=== PATIENT | female | born 1965 | race Caucasian/White ===

== ENCOUNTER 2017-06-28 03:51 | Emergency (ER) | payer BC ==
[~2017-06-28] VITALS: Ht 154.9 cm; Wt 105.8 kg
[2017-06-28 03:55] VITALS: TEMP 36.9; Ht 154.9 cm; Wt 105.8 kg
[2017-06-28 05:01] LABS: BASO % 0.8 %; BASO ABS # 0.06 K/uL (0-0.2); EOS % 2.6 %; HEMATOCRIT 24.3 % (37-47); IG% 0.9 %; LYMPH % 24.7 %; LYMPH ABS # 1.92 K/uL (1.2-3.4); MEAN CELL VOLUME 99.6 fL (80-100); MEAN CORPUSCULAR HEMOGLOBIN 31.6 pg (25-34); MEAN CORPUSCULAR HGB CONC 31.7 g/dl (32-36); MEAN PLATELET VOLUME 9.1 fL (7.4-10.4); MONO % 6.6 %; NEUT % 64.4 %; PLATELET COUNT 429 K/uL (130-400); RED BLOOD COUNT 2.44 M/uL (4.2-5.4); WHITE BLOOD COUNT 7.76 K/uL (4.8-10.8)
[2017-06-28 05:11] LABS: INR 1.1 (0.9-1.1); PARTIAL THROMBOPLASTIN RATIO 0.8; PROTHROMBIN TIME (PATIENT) 11.3 SECONDS (9.0-12.0)
[2017-06-28] MEDS ORDERED: LEVO100T7 PO (05:12)
[2017-06-28] MEDS ORDERED: FEXO1TAB49 PO (05:13)
[2017-06-28] MEDS ORDERED: ATEN-175 PO (05:14)
[2017-06-28] MEDS ORDERED: FOLI1TAB7 PO (05:14)
[2017-06-28 05:19] LABS: BUN/CREATININE RATIO 22.1 (10-20); CALCIUM 8.1 mg/dl (8.5-10.1); CREATININE 0.9 mg/dl (0.60-1.20); POTASSIUM 3.9 mmol/L (3.5-5.1)
[2017-06-28] MEDS ORDERED: FERR324T4 PO (05:23)
[2017-06-28] MEDS ORDERED: METH2.5T PO (05:25)
[2017-06-28 05:28] LABS: PREG INTERNAL NEGATIVE QC NEG CLEAR BACKGROUND; PREG INTERNAL POSITIVE QC POS CONTROL LINE
[2017-06-28 05:29] LABS: THYROID STIMULATING HORMONE 0.973 uIu/ml (0.300-4.500)
[2017-06-28 05:33] LABS: COMPLETE YES; HYPERSEGMENTED POLYS 1+; POLYCHROMASIA 1+
--- NOTE | 2017-06-28 07:20 | DIAGNOSTIC IMAGING REPORT ---
PELVIC COMPLETE NON OB, TRANSVAG-FEMALE PELVIS CLINICAL HISTORY: 51 years-old Female presenting with heavy bleeding for 3 weeks. TECHNIQUE: Real-time grayscale and color and spectral Doppler ultrasound imaging of the pelvis was performed first using a transabdominal probe and subsequently transvaginal for better characterization. COMPARISON: None. FINDINGS: Uterus: Mildly enlarged for age. Anteverted retroflexed. The uterus measures 13.0 x 7.4 x 9.4 cm. Endometrial stripe measures 19 mm in thickness. Endometrium heterogeneous in appearance. Cervix contains nabothian cysts. Right adnexa: Right ovary expanded by a septated cystic lesion with low level echoes and polypoid isoechoic peripheral nodularity. This lesion measures 2.3 x 3.1 x 5.0 cm. Right ovary overall measures 3.1 x 3.7 x 5.4 cm. Normal color Doppler flow and arterial and venous waveforms within the ovarian parenchyma. Left adnexa: Not visualized. Other: No free fluid. IMPRESSION: 1. Thickened and heterogeneous appearance of the endometrium. In a patient of this age, presumably perimenopausal or postmenopausal, this is primarily concerning for endometrial neoplasm although endometrial hyperplasia can also have this appearance. Gynecologic consultation for endometrial biopsy recommended. 2. Complex right ovarian lesion. A borderline lesion or malignancy cannot be excluded. Further evaluation with contrast-enhanced MR of the pelvis versus surgical consultation recommended. The report will be called/faxed according to standard departmental protocol. Electronically signed by: Jimmie Mcleod M.D. 06/28/2017 7:18 AM Dictated Date/Time: 06/28/2017 7:13 AM
--- NOTE | 2017-06-28 07:33 | EMERGENCY ROOM VISIT NOTE ---
History First contact with patient: 04:05 Chief Complaint: ED VAG BLEEDING Stated Complaint: PROLONGED AND HEAVY MENSTRAL CYCLE History of Present Illness The patient is a 51 year old female who presents to the Emergency Room with complaints of abnormal menstrual cycles the past year that have been 2-3 months apart and longer duration. Patient states she's been having her menstrual cycle for the past 3 weeks that is common go in severity bleeding. Last few days has been heavier. She saw urgent care and the family care doctor. She had a CBC that showed mild anemia. She's not seen a OB doctor. Patient states she feels fine now but did feel slightly fatigued earlier in the week. She has a history of anemia. Patient denies chest pain, dyspnea, abdominal pain, back pain, urinary symptoms, leg pain or swelling. No bleeding or bruising. No prior blood transfusions. Review of Systems See HPI for pertinent positives & negatives. A total of 10 systems reviewed and were otherwise negative. Past Medical/Surgical History Hypothyroidism, rheumatoid arthritis, hypertension Social History Smoking Status: Former Smoker Drug Use: none Marital Status: Housing Status: lives with family Occupation Status: employed Current/Historical Medications Scheduled Atenolol (Tenormin), 100 MG PO DAILY Ferrous Sulfate (Ferrous Sulfate), 324 MG PO DAILY Fexofenadine Hcl (Precious Allergy), 180 MG PO DAILY Folic Acid (Folvite), 1 MG PO DAILY Levothyroxine Sodium (Levothyroxine Sodium), 100 MCG PO DAILY Methotrexate (Methotrexate), 20 MG PO WK Physical Exam Vital Signs Date Time Temp Pulse Resp B/P (MAP) Pulse Ox O2 Delivery O2 Flow Rate FiO2 06/28/17 06:55 55 12 100 06/28/17 06:50 57 15 99 06/28/17 06:45 144/68 06/28/17 06:16 25 06/28/17 05:11 59 18 100 06/28/17 05:10 59 06/28/17 05:10 Room Air 06/28/17 05:06 58 22 99 Room Air 06/28/17 05:05 145/69 06/28/17 03:55 36.9 59 18 142/84 99 Room Air Physical Exam VITALS: Vitals are noted on the nurse's note and reviewed by myself. Vital signs stable. GENERAL: Pleasant female, in no acute distress, nondiaphoretic, well-developed well-nourished. SKIN: The skin was without rashes, erythema, edema, or bruising. There is no tenting of the skin. Capillary reflex less than 2 seconds. HEAD: Normocephalic atraumatic. EARS: External auditory canals clear, tympanic membranes pearly verde without erythema or effusion bilaterally. EYES: Pupils equal round and reactive to light and accommodation. Conjunctivae without injection, sclerae without icterus. Extraocular movements intact. NOSE: Patent, turbinates without inflammation or discharge. MOUTH: Mucous membranes moist. Pharynx without erythema or exudate. Uvula midline. Airway patent. Tongue does not deviate. NECK: Supple without nuchal rigidity. No lymphadenopathy. No thyromegaly. Cervical spine is nontender. No JVD. HEART: Regular rate and rhythm without murmurs gallops or rubs. LUNGS: Clear to auscultation bilaterally without wheezes, rales or rhonchi. No dullness to percussion. No retractions or accessory muscle use. ABDOMEN: Positive bowel sounds x 4. Normal tympanic percussion. Soft, nontender, without masses or organomegaly. Godfrey sign negative. No guarding or rebound tenderness. No CVA tenderness exam: Normal external female genitalia, minimal dark red blood in the os, no active bleeding from the os. Counter Installer present. MUSCULOSKELETAL: No muscle atrophy, erythema, or edema noted. NEURO: Patient was alert and oriented to person place and time. Normal sensation to light and sharp touch. No focal neurological deficits. Medical Decision & Procedures Laboratory Results 06/28/17 04:45 Red Blood Count 2.44, Mean Corpuscular Volume 99.6, Mean Corpuscular Hemoglobin 31.6, Mean Corpuscular Hemoglobin Concent 31.7, Mean Platelet Volume 9.1, Neutrophils (%) (Auto) 64.4, Lymphocytes (%) (Auto) 24.7, Monocytes (%) (Auto) 6.6, Eosinophils (%) (Auto) 2.6, Basophils (%) (Auto) 0.8, Neutrophils # (Auto) 5.00, Lymphocytes # (Auto) 1.92, Monocytes # (Auto) 0.51, Eosinophils # (Auto) 0.20, Basophils # (Auto) 0.06 06/28/17 04:45 Test 06/28/17 04:45 White Blood Count 7.76 K/uL (4.8-10.8) Red Blood Count 2.44 M/uL (4.2-5.4) Hemoglobin 7.7 g/dL (12.0-16.0) Hematocrit 24.3 % (37-47) Mean Corpuscular Volume 99.6 fL (80-100) Mean Corpuscular Hemoglobin 31.6 pg (25-34) Mean Corpuscular Hemoglobin Concent 31.7 g/dl (32-36) Platelet Count 429 K/uL (130-400) Mean Platelet Volume 9.1 fL (7.4-10.4) Neutrophils (%) (Auto) 64.4 % Lymphocytes (%) (Auto) 24.7 % Monocytes (%) (Auto) 6.6 % Eosinophils (%) (Auto) 2.6 % Basophils (%) (Auto) 0.8 % Neutrophils # (Auto) 5.00 K/uL (1.4-6.5) Lymphocytes # (Auto) 1.92 K/uL (1.2-3.4) Monocytes # (Auto) 0.51 K/uL (0.11-0.59) Eosinophils # (Auto) 0.20 K/uL (0-0.5) Basophils # (Auto) 0.06 K/uL (0-0.2) RDW Standard Deviation 50.9 fL (36.4-46.3) RDW Coefficient of Variation 15.6 % (11.5-14.5) Immature Granulocyte % (Auto) 0.9 % Immature Granulocyte # (Auto) 0.07 K/uL (0.00-0.02) Nucleated RBC Absolute Count (auto) 0.03 K/uL (0-0) Nucleated Red Blood Cells % 0.4 % Hypersegmented Polys 1+ Polychromasia 1+ Prothrombin Time 11.3 SECONDS (9.0-12.0) Prothromb Time International Ratio 1.1 (0.9-1.1) Activated Partial Thromboplast Time 21.6 SECONDS (21.0-31.0) Partial Thromboplastin Ratio 0.8 Anion Gap 8.0 mmol/L (3-11) Est Creatinine Clear Calc Drug Dose 81.0 ml/min Estimated GFR () 84.6 Estimated GFR (Non- 73.0 BUN/Creatinine Ratio 22.1 (10-20) Calcium Level 8.1 mg/dl (8.5-10.1) Total Bilirubin 0.2 mg/dl (0.2-1) Aspartate Amino Transf (AST/SGOT) 31 U/L (15-37) Alanine Aminotransferase (ALT/SGPT) 45 U/L (12-78) Alkaline Phosphatase 61 U/L (45-117) Total Protein 6.9 gm/dl (6.4-8.2) Albumin 3.5 gm/dl (3.4-5.0) Globulin 3.4 gm/dl (2.5-4.0) Albumin/Globulin Ratio 1.0 (0.9-2) Thyroid Stimulating Hormone (TSH) 0.973 uIu/ml (0.300-4.500) Human Chorionic Gonadotropin, Qual NEG (NEG) ED Course Prior records/ancillary studies reviewed. Triage Nursing notes reviewed. Additional history obtained from the family. The patient's history was concerning for vaginal bleeding Differential diagnosis: Etiologies such as ectopic , menopause, dysfunction uterine bleeding, bleeding dyscrasia, trauma, infection, as well as others were entertained. Physical examination: As above. Vitals signs revealed stable. ER treatment provided: Patient was observed On reassessment the patient felt better. Diagnostic interpretation by me: The labs revealed anemia of H&H is 7.7 and 24. Blood type A positive Negative hCG Imaging studies: Ultrasound US PELVIC/ENDOVAG: Technically limited study due to body habitus and bowel gas. Endometrium is thickened and heterogeneous in appearance measuring up to 2 cm. This may represent blood clots/hyperplasia. Recommend followup. Complex right ovarian cystic lesion with internal septation and mural nodularity measuring approximately 2.3 x 3.1 x 5 cm. Cannot exclude malignant lesion based on this exam. There is vascular flow in the rim of surrounding right ovarian tissue The left ovary is not seen. Radiologist: Shauna Armas M.D. Consultation: A consultation was placed with the sql data architect physician, Dr Almanzar The case was discussed and diagnostics were reviewed. He recommends DC with outpatient follow up vilma few days. This appears to be consistent with abnormal vaginal bleeding and anemia who was asymptomatic. Patient had minimal bleeding on exam. Patient was not hypotensive. She was not tachycardic. She was asymptomatic from her anemia. Patient was neurovascularly and neurologically intact. She is well-appearing. She is advised follow-up with MECHANICAL ASSEMBLY TECHNICIAN in a few days for her ongoing symptoms or here in the ER sooner for heavy bleeding, difficulty breathing, passing out, worsening signs or symptoms or as needed. Patient is tolerating fluids and ambulated without difficulties. Her symptoms have been ongoing. By the evaluation outlined above emergent etiologies such as bleeding dyscrasia, ectopic , trauma, as well as others were deemed relatively unlikely. The pt informed about the findings as listed above. All questions were answered and pleased with the treatment. Return instructions were outlined and the patient was discharged in stable condition. Referral: The patient was referred to MECHANICAL ASSEMBLY TECHNICIAN for follow-up in tomorrow for a recheck of her current condition. Case reviewed with my attending Medical Decision As above Medication Reconcilliation Current Medication List: was personally reviewed by me Blood Pressure Screening Patient's blood pressure: Normal blood pressure Impression Primary Impression: Abnormal uterine bleeding Additional Impression: Anemia Departure Information Dispostion Home / Self-Care Condition GOOD Referrals Tony Tee D.O. (PCP) Patient Instructions My [facility] Additional Instructions You have a right ovarian lesion that needs follow-up with MECHANICAL ASSEMBLY TECHNICIAN. Acetaminophen(Tylenol) may be used for fever or pain. Use 1000mg every six hours as needed. Avoid using more than 3000mg in a 24 hour period. Rest and drink plenty of fluids as tolerated. Continue current medications. Return to the ER immediately for severe pain, heavy vaginal bleeding, abdominal pain, vomiting, fevers, chest pains, difficulty breathing, worsening of your condition, or as needed. Follow up with your MECHANICAL ASSEMBLY TECHNICIAN in the next few days for a recheck of your current condition. Call today for your appointment. Problem Qualifiers
[2017-06-28 07:49] VITALS: BP 125/63; PULSE 56; O2SAT 99
== END 2017-06-28 07:50 | disposition home or self-care (01) ==
LOC: C.EDB 03:53
DX: N93.9 Abnormal uterine and vaginal bleeding, unspecified (principal); D64.9 Anemia, unspecified; E03.9 Hypothyroidism, unspecified; M06.9 Rheumatoid arthritis, unspecified; I10 Essential (primary) hypertension; Z87.891 Personal history of nicotine dependence; Z79.899 Other long term (current) drug therapy

== ENCOUNTER → 2017-07-03 | Outpatient (CLI) | payer BC ==
[~2017-07-03] MED LIST: ATEN-175 PO; FERR324T4 PO; FEXO1TAB49 PO; FOLI1TAB7 PO; LEVO100T7 PO; METH2.5T PO
[2017-07-03 12:24] LABS: MEAN CORPUSCULAR HEMOGLOBIN 30.9 pg (25-34); MEAN CORPUSCULAR HGB CONC 30.9 g/dl (32-36); MEAN PLATELET VOLUME 9.3 fL (7.4-10.4); PLATELET COUNT 417 K/uL (130-400); WHITE BLOOD COUNT 8.51 K/uL (4.8-10.8)
[2017-07-03 12:55] LABS: THYROID STIMULATING HORMONE 0.791 uIu/ml (0.300-4.500)
== END | disposition home or self-care (01) ==
LOC: C.LAB1850 10:24
PROVIDERS: ATTEND Obstetrics & Gynecology
DX: N92.1 Excessive and frequent menstruation with irregular cycle (principal); D50.0 Iron deficiency anemia secondary to blood loss (chronic)

== ENCOUNTER → 2017-07-03 | Outpatient (CLI) | payer BC | END | disposition home or self-care (01) | LOC: C.PAPS 12:12 | PROVIDERS: ATTEND Obstetrics & Gynecology | DX: N92.1 Excessive and frequent menstruation with irregular cycle (principal) ==

== ENCOUNTER → 2017-07-03 | Outpatient (CLI) | payer BC | END | disposition home or self-care (01) | LOC: C.PATHSPEC 11:39 | PROVIDERS: ATTEND Obstetrics & Gynecology | DX: N92.1 Excessive and frequent menstruation with irregular cycle (principal) ==

== ENCOUNTER → 2017-08-23 | Outpatient (CLI) | payer BC ==
[~2017-08-23] MED LIST changes: -FOLI1TAB7 PO; +FOLI1TAB8 PO
[2017-08-23 12:21] LABS: HEMATOCRIT 40.7 % (37-47); HEMOGLOBIN 13.2 g/dL (12.0-16.0); MEAN CELL VOLUME 95.3 fL (80-100); MEAN CORPUSCULAR HEMOGLOBIN 30.9 pg (25-34); MEAN CORPUSCULAR HGB CONC 32.4 g/dl (32-36); MEAN PLATELET VOLUME 10.4 fL (7.4-10.4); PLATELET COUNT 383 K/uL (130-400); RED CELL DISTRIBUTION WIDTH CV 13.3 % (11.5-14.5); RED CELL DISTRIBUTION WIDTH SD 45.4 fL (36.4-46.3)
== END | disposition home or self-care (01) ==
LOC: C.LAB1850 09:34
PROVIDERS: ATTEND Obstetrics & Gynecology
DX: N92.1 Excessive and frequent menstruation with irregular cycle (principal); D50.0 Iron deficiency anemia secondary to blood loss (chronic)

== ENCOUNTER → 2017-11-09 | Day surgery (SDC) | payer BC ==
[2017-10-31 09:52] VITALS: BMI 44.0
--- NOTE | 2017-10-31 10:34 | PAT Medication Instructions ---
Service Date Oct 31, 2017. Current Home Medication List Atenolol (Tenormin), 100 MG PO QPM Ferrous Sulfate (Ferrous Sulfate), Unknown Dose PO BID Fexofenadine Hcl (Precious Allergy), 180 MG PO QPM Folic Acid (Folvite), 1 MG PO 6XWK Lansoprazole (Prevacid), Unknown Dose PO UD PRN for REFLUX Levothyroxine Sodium (Levothyroxine Sodium), 100 MCG PO QAM Methotrexate (Methotrexate), 20 MG PO WK Medication Instructions For Your Scheduled Surgery -Contact your surgeon for instructions for: Methotrexate (Methotrexate), 20 MG PO WK (OK to continue per rheumatology) - Hold the following medications the morning of surgery: Ferrous Sulfate (Ferrous Sulfate), Unknown Dose PO BID - Take the following medications the morning of surgery with a sip of water: Lansoprazole (Prevacid), Unknown Dose PO UD PRN for REFLUX Levothyroxine Sodium (Levothyroxine Sodium), 100 MCG PO QAM - Take the following medications as scheduled the night before surgery: Atenolol (Tenormin), 100 MG PO QPM Ferrous Sulfate (Ferrous Sulfate), Unknown Dose PO BID Fexofenadine Hcl (Precious Allergy), 180 MG PO QPM Folic Acid (Folvite), 1 MG PO 6XWK Lansoprazole (Prevacid), Unknown Dose PO UD PRN for REFLUX (if needed) If you have any questions please call us at [phone] or [phone] or [phone]
[2017-10-31 11:01] LABS: BASO % 0.7 %; BASO ABS # 0.04 K/uL (0-0.2); EOS % 7.6 %; EOS ABS # 0.45 K/uL (0-0.5); HEMATOCRIT 40.2 % (37-47); HEMOGLOBIN 13.6 g/dL (12.0-16.0); IG# 0.01 K/uL (0.00-0.02); LYMPH % 14.7 %; LYMPH ABS # 0.87 K/uL (1.2-3.4); MEAN CELL VOLUME 89.3 fL (80-100); MEAN CORPUSCULAR HEMOGLOBIN 30.2 pg (25-34); MEAN CORPUSCULAR HGB CONC 33.8 g/dl (32-36); MEAN PLATELET VOLUME 9.7 fL (7.4-10.4); MONO % 8.3 %; MONO ABS # 0.49 K/uL (0.11-0.59); NEUT % 68.5 %; NEUT ABS # 4.06 K/uL (1.4-6.5); PLATELET COUNT 318 K/uL (130-400); RED CELL DISTRIBUTION WIDTH SD 45.6 fL (36.4-46.3); WHITE BLOOD COUNT 5.92 K/uL (4.8-10.8)
[2017-10-31 12:20] LABS: CALCIUM 8.9 mg/dl (8.5-10.1); CREATININE 0.87 mg/dl (0.60-1.20); POTASSIUM 4.1 mmol/L (3.5-5.1)
--- NOTE | 2017-10-31 15:17 | HISTORY & PHYSICAL EXAMINATION ---
DATE OF ADMISSION: 11/09/2017 ADMITTING DIAGNOSES: 1. Menorrhagia with irregular cycles. 2. Iron deficiency anemia secondary to chronic blood loss. ADMISSION HISTORY: The patient is a 51-year-old 2, para 2, last menstrual period of 22 October, who presents today for diagnostic hysteroscopy, D&C and endometrial ablation for menorrhagia with iron deficiency anemia. [place] and followup from the Emergency Room for anemia from her menorrhagia. The patient states her menstrual cycles are always heavy. Over the last several years, they become irregular. She will skip several months at a time and then will have been extremely heavy bleeding. The patient was seen in the Emergency Room in June and was noted to be markedly anemic with a thickened endometrial lining and gynecological followup was recommended. The patient was seen in the office, where she had a pelvic ultrasound, which showed a bulky anterior uterus with a small intramural fibroid. She had an endometrial biopsy done, which showed scant endometrium and blood clot. To control the patient's bleeding, she was put on a progesterone taper and started on exogenous iron therapy. Repeat hemoglobin showed a hemoglobin of 11.5. Because of the menorrhagia and anemia, treatment options were discussed and the patient has been admitted for the above listed procedure. PAST MEDICAL HISTORY: OBSTETRICAL: x2. GYNECOLOGICAL: As above. MEDICAL: Hypertension, hypothyroidism, and rheumatoid arthritis. SURGICAL: [place] teeth extraction. ALLERGIES: No known drug allergies. CURRENT MEDICATIONS: Atenolol, levothyroxine, and methotrexate. SOCIAL HISTORY: No smoking. FAMILY HISTORY: Noncontributory. REVIEW OF SYSTEMS: As per HPI. PHYSICAL EXAMINATION: GENERAL: Shows a pleasant obese female in no acute distress. VITAL SIGNS: Blood pressure 140/90, height of 5 feet 2 inches and weight of 234 pounds. HEENT EXAMINATION: Unremarkable. NECK: Supple. LUNGS: Clear. HEART: With a regular rhythm and rate. ABDOMEN: Obese and nontender with no palpable masses. No rebound or guarding. No organomegaly. Positive bowel sounds. PELVIC: Shows normal external genitalia. Vaginal vault is pink and rugated. The cervical os is multiparous and closed. Bimanual examination, the uterus and adnexa are not palpable secondary to the patient's habitus. RECTAL: Confirmatory. EXTREMITIES: Shows no deep calf tenderness. NEUROLOGIC: Grossly intact. IMPRESSION: A 51-year-old G2, P2, menorrhagia and anemia for D&C hysteroscopy and endometrial ablation. PLAN: The risks, benefits and alternatives to the surgery have been discussed. While the benefits will be removal of any residual tissue and ablation of the endometrial lining, the risks are bleeding, infection, inadvertent perforation of the uterus, and failure to improve the patient's bleeding. The patient has been reminded that it can take as long as 12 months to show a clinical response to the endometrial ablation. The patient understands, her permit has been signed, and she wishes to proceed.
[~2017-11-09] VITALS: Ht 154.9 cm; Wt 104.7 kg
[~2017-11-09] MED LIST changes: +ATROPINE SULFATE 0.1 MG/ML 5ML SYR IV PRN; +DEXAMETHASONE SOD INJ 4 MG/ML VIAL ONE; +EpHEDrine SULFATE 50MG/5ML SYR ONE; +FENTANYL CITRATE INJ 50 MCG/1 ML 2 ML VIAL IV PRN; +FENTANYL CITRATE INJ 50 MCG/1 ML 2 ML VIAL ONE; +IBUPROFEN 600 MG TAB PO PRN; +KETOROLAC TROMETHAMINE 30 MG/ML VIAL IV. PRN; +KETOROLAC TROMETHAMINE 30 MG/ML VIAL ONE; +LACTATED RINGER'S 1000ML 1,000 ML IV SCH; +LANS15CA6 PO; +LIDOCAINE HCL 2% 2 ML VIAL (20MG/ML) ONE; +MIDAZOLAM HCL 1 MG/ML 2ML VIAL ONE; +ONDANSETRON INJ 2 MG/ML 2 ML VIAL IV PRN; +ONDANSETRON INJ 2 MG/ML 2 ML VIAL ONE; +PROPOFOL IV EMULSION 10 MG/ML 20 ML VIAL IV ONE; +SODIUM CHLORIDE 0.9% 1000ML 1,000 ML IV SCH
[2017-11-09 07:16] VITALS: BP 151/96; PULSE 54; TEMP 36.9; O2SAT 100; Ht 154.9 cm; Wt 104.7 kg
--- NOTE | 2017-11-09 09:25 | History & Physical Bridge Note ---
H&P Re-Evaluation Bridge Note: I have examined the patient, reviewed the History & Physical and in the interval since the performance of the History & Physical I have noted the following changes of clinical significance: Patient getting over URI from last week, slight cough non productive. H/O genital HSV, thinks she is having a monica- rectal outbreak. O: Lungs- clear - small perirectal HSV lesion A/P 1) URI, lungs clear, OK for surgery from CEMENT RUBBER standpoint 2) HSV outbreak, isolated lesion away from operative field, OK to proceed
--- NOTE | 2017-11-09 10:19 | [facility] Post Operative Brief Note ---
Immediate Operative Summary Operative Date Nov 09, 2017. Pre-Operative Diagnosis Menorrhagia with irregular cycles Post-Operative Diagnosis Menorrhagia with irregular cycles Procedure(s) Performed Diagnostic hysteroscopy, polypectomy, and novasure ablation Surgeon Dr. Anthony Almanzar MD Hvac Sheet Metal Installer Helper Surgeon(s) None Estimated Blood Loss 0ml Findings See Below small endometrialpolyp excised, Novasure ablation Specimens A. Uterine polyp Drains None Anesthesia Type General Complication(s) none Disposition Accompanied Pt To Recover: no Disposition: Recovery Room / PACU
--- NOTE | 2017-11-09 10:27 | Discharge Instructions-SurgCtr ---
Discharge Instructions Date of Service Nov 09, 2017. Visit Reason for Visit: Menorrhagia W/Irregular Cycles, Iron Deficiency An Discharge Discharge Diagnosis / Problem: same Discharge Goals Goal(s): Therapeutic intervention Activity Recommendations Activity Limitations: as noted below Anesthesia . Post Anesthesia Instructions: If you have had General Anesthesia or IV Sedation: * Do not drive today. * Resume driving when surgeon permits. * Do not make important decisions or sign legal documents today. * Call surgeon for: 1. Temperature elevations greater than 101 degrees F. 2. Uncontrollable pain. 3. Excessive bleeding. 4. Persistent nausea and vomiting. 5. Medication intolerance (nausea, vomiting or rash). * For nausea and vomiting use only clear liquids such as: tea, soda, bouillon until nausea subsides, then gradually increase diet as tolerated. * If you have any concerns or questions, call your surgeon's office. If physician is unavailable and it is an emergency, call 911 or go to the nearest emergency room. . Instructions / Follow-Up Instructions / Follow-Up ACTIVITY RECOMMENDATIONS: * Avoid tampons, douching, hot tubs, pools, and intercourse until bleeding has stopped. * May shower as usual. * No strenuous activity for 24-48 hours. After 24-48 hours, you may do anything you feel like doing (driving and sports are okay). SPECIAL CARE INSTRUCTIONS: Special Diet: * Mild nausea may occur in the immediate post-operative period. * Take clear liquids such as tea, cola or bouillon until all nausea has subsided; you may then resume your normal diet. Special Care: * Light bleeding and vaginal spotting can last from a few days to 3-4 weeks. Call your doctor if bleeding becomes heavier than the heaviest part of your period. * Check your temperature twice a day for one week. If it goes above 100.4 degrees Fahrenheit (38.0 Celsius), notify your doctor. * Call your doctor's office for an appointment for 6 weeks after your surgery. FOLLOW-UP VISIT: Call your doctor's office for an appointment for 6 weeks after your surgery. Diet Recommendations Home Diet: resume previous diet Procedures Procedures Performed: Diagnostic hysteroscopy, polypectomy, and novasure ablation Pending Studies Studies pending at discharge: yes List of pending studies: Pathology Medical Emergencies . Who to Call and When: Medical Emergencies: If at any time you feel your situation is an emergency, please call 911 immediately. . Non-Emergent Contact Non-Emergency issues call your: Dewaxer Call Non-Emergent contact if: you have a fever, temperature is above 100.5, you have any medication questions . . "Provider Documentation" section prepared by Anthony Almanzar. .
--- NOTE | 2017-11-09 11:10 | Anesthesiology Progress Note ---
Anesthesia Post Op Note Date & Time Nov 09, 2017 at 11:10 Vital Signs Pain Intensity: 0 Vital Signs Past 12 Hours Date Time Temp Pulse Resp B/P (MAP) Pulse Ox O2 Delivery O2 Flow Rate FiO2 11/09/17 10:58 59 16 11/09/17 10:58 58 16 100 11/09/17 10:57 56 15 11/09/17 10:57 54 15 100 11/09/17 10:56 149/92 11/09/17 10:52 59 13 11/09/17 10:52 57 13 100 11/09/17 10:51 134/69 11/09/17 10:50 54 10 100 11/09/17 10:50 53 10 11/09/17 10:49 56 8 100 11/09/17 10:49 57 8 11/09/17 10:46 136/73 11/09/17 10:44 70 25 11/09/17 10:44 73 25 97 11/09/17 10:41 147/67 11/09/17 10:39 63 15 100 11/09/17 10:39 61 15 11/09/17 10:36 129/62 11/09/17 10:34 59 15 129/66 100 11/09/17 10:34 58 15 11/09/17 10:34 36.1 61 15 129/66 (98) 100 Room Air 10 Oxymask 11/09/17 07:16 36.9 54 20 151/96 (114) 100 Room Air Notes Mental Status: alert / awake / arousable, participated in evaluation Pt Amnestic to Procedure: Yes Nausea / Vomiting: adequately controlled Pain: adequately controlled Airway Patency, RR, SpO2: stable & adequate BP & HR: stable & adequate Hydration State: stable & adequate Anesthetic Complications: no major complications apparent
[2017-11-09 11:15] VITALS: BP 172/77; PULSE 61; TEMP 36.7; O2SAT 97
--- NOTE | 2017-11-09 11:15 | OPERATIVE REPORT ---
DATE OF OPERATION: 11/09/2017 PREOPERATIVE DIAGNOSIS: Menorrhagia with irregular menstrual cycles. POSTOPERATIVE DIAGNOSES: 1. Same. 2. Endometrial polyp. PROCEDURES PERFORMED: 1. Diagnostic hysteroscopy. 2. Polypectomy. 3. NovaSure endometrial ablation. SURGEON: Dr. Almanzar. ANESTHESIA: General. FINDINGS: Hysteroscopic examination of the endometrial cavity showed some denuded endometrium with an isolated endometrial polyp on the posterior wall. Uterus sounded to 12 cm with a cervical length of 5 giving a functional length of 7 cm. NovaSure instrument inserted and polypectomy performed. NovaSure ablation then performed for 48 seconds. Repeat hysteroscopic examination showed a denuded endometrium. Fluid deficit for the procedure 400 mL. PROCEDURE NOTE: The patient was taken to the operating room and after general anesthesia, was placed in dorsal lithotomy position, draped and prepped in the usual fashion. Single tooth tenaculum was used to grasp the anterior lip of the cervix. The uterine cavity was sounded and the cervical os was dilated with Frye dilators to a Frye #23. The NovaSure hysteroscope was inserted into the endometrial cavity with the description as above. The MyoSure excision instrument was then inserted through the hysteroscope and the posterior polyp was excised and sent for pathological specimen. The hysteroscope was removed and the NovaSure ablative instrument was inserted into the uterine cavity. The array deployed to a width of 4.8 mm. Cavity integrity passed and then a 40-second ablation using 172 osborne of power. NovaSure was removed. Repeat hysteroscopic evaluation showed an ablated endometrial lining. Fluid deficit for the procedure 400 mL. The patient taken out of dorsal lithotomy to recovery room in satisfactory condition. I attest to the content of the Intraoperative Record and any orders documented therein. Any exception s are noted below.
[2017-11-09 11:45] VITALS: BP 168/80; PULSE 62; O2SAT 97
== END | disposition home or self-care (01) ==
LOC: C.ACU 06:42
PROVIDERS: ATTEND Obstetrics & Gynecology
DX: N92.0 Excessive and frequent menstruation with regular cycle (principal); N84.0 Polyp of corpus uteri; N92.6 Irregular menstruation, unspecified; D50.0 Iron deficiency anemia secondary to blood loss (chronic); J06.9 Acute upper respiratory infection, unspecified; B00.9 Herpesviral infection, unspecified; I10 Essential (primary) hypertension; E03.9 Hypothyroidism, unspecified; M06.9 Rheumatoid arthritis, unspecified; Z79.899 Other long term (current) drug therapy